=== PATIENT | male | born 1930 | race Caucasian/White ===

== ENCOUNTER 2017-09-03 14:11 | Inpatient (IN) | payer OTHER ==
[~2017-09-03] VITALS: Ht 180.3 cm; Wt 88.5 kg
[2017-09-03 14:36] LABS: BASOPHIL (%) 0.7 % (0-1); EOSINOPHIL (%) 0.3 % (0-5); HEMATOCRIT 47.4 % (38.0-50.0); HEMOGLOBIN 16.2 G/DL (12.5-16.6); IMMATURE GRANULOCYTE (%) 0.3 % (0.0-0.7); LYMPHOCYTE (%) 20.5 % (15-42); LYMPHOCYTE COUNT 1.2 K/uL (1.0-2.8); MCHC 34.2 G/DL (30.0-36.0); MCV 93.5 FL (86-99); MONOCYTE (%) 7.7 % (3-12); MONOCYTE COUNT 0.5 K/uL (0-0.8); NEUTROPHIL (%) 70.5 % (45-76); NEUTROPHIL COUNT 4.1 K/uL (1.8-6.4); PLATELET COUNT 178 K/uL (156-360); RBC DIS.WIDTH-CV 13.6 % (11.8-14.6); RBC DIS.WIDTH-SD 46.5 % (39-53); RED BLOOD COUNT 5.07 M/uL (4.00-5.50); WHITE BLOOD COUNT 5.8 K/uL (4.1-10.2)
[2017-09-03 14:56] LABS: TROP-I INTERPRETATION NEGATIVE; TROPONIN-I < 0.01 ng/mL (0.0-0.30)
[2017-09-03 14:59] LABS: INTER. NORMALIZED RATIO 1.1
[2017-09-03 15:02] LABS: AMYLASE 24 IU/L (1-118); CHLORIDE 107 mEq/L (99-109); POTASSIUM 3.8 mEq/L (3.7-5.4); PTT 40.4 SEC (25-37); SODIUM 139 mEq/L (136-147)
[2017-09-03 15:04] LABS: GLUCOSE 107 mg/dL (70-99)
[2017-09-03 15:07] LABS: SERUM ETHYL ALCOHOL < 10 mg/dL
[2017-09-03 15:08] LABS: CREATININE 0.7 mg/dL (0.6-1.3); GFR ESTIMATE (CALCULATED) > 59 mL/min/ (58.99-99999)
[2017-09-03 15:09] LABS: UREA NITROGEN (BUN) 10 mg/dL (9-23)
[2017-09-03 15:11] LABS: LIPASE 15 U/L (1.0-51.0)
[2017-09-03 19:29] LABS: HDL CHOLESTEROL 50 MG/DL (Desirable>=40); LDL CHOLESTEROL 116 mg/dL (Desirable<100); NON-HDL CHOLESTEROL 140 mg/dL (Desirable<160); TOTAL CHOLESTEROL 190 mg/dL (Desirable<200); TRIGLYCERIDES 118 MG/DL (Normal: <150)
[2017-09-03 19:47] LABS: APPEARANCE CLEAR ((CLEAR)); BILIRUBIN NEGATIVE; BLOOD NEGATIVE; COLOR YELLOW ((YELLOW)); GLUCOSE (STRIP) NEGATIVE; KETONES 20; LEUKOCYTES NEGATIVE; NITRITE NEGATIVE; PROTEIN (STRIP) NEGATIVE; UCUL ADDED? NO; UROBILINOGEN 0.2 MG/DL (0.2-1.0)
[2017-09-03 19:59] LABS: AMPHETAMINE NEGATIVE (500 ng/mL); BARBITURATES NEGATIVE (200 ng/mL); BENZODIAZEPINES NEGATIVE (150 ng/mL); BUPRENORPHINE NEGATIVE (10 ng/mL); COCAINE NEGATIVE (150 ng/mL); METHADONE NEGATIVE (200 ng/mL); METHAMPHETAMINE NEGATIVE (500 ng/mL); OPIATES (MORPHINE) NEGATIVE (100 ng/mL); OXYCODONE NEGATIVE (100 ng/mL); PHENCYCLIDINE NEGATIVE (25 ng/mL); PROPOXYPHENE NEGATIVE (300 ng/mL); THC CANNABINOIDS NEGATIVE (50 ng/mL); TRICYCLIC ANTIDEPRESSANTS NEGATIVE (300 ng/mL)
[2017-09-03 21:35] LABS: TROP-I INTERPRETATION NEGATIVE; TROPONIN-I 0.02 ng/mL (0.0-0.30)
[2017-09-04 03:18] VITALS: BP 160/96
[2017-09-04 04:20] LABS: HEMATOCRIT 43.2 % (38.0-50.0); HEMOGLOBIN 14.8 G/DL (12.5-16.6); MCH 31.8 PG (29.0-34.0); MCHC 34.3 G/DL (30.0-36.0); MCV 92.7 FL (86-99); PLATELET COUNT 163 K/uL (156-360); RBC DIS.WIDTH-CV 13.5 % (11.8-14.6); RBC DIS.WIDTH-SD 45.3 % (39-53); RED BLOOD COUNT 4.66 M/uL (4.00-5.50); WHITE BLOOD COUNT 6.5 K/uL (4.1-10.2)
[2017-09-04 04:29] LABS: ALBUMIN 3.6 g/dL (3.2-4.8); CHLORIDE 104 mEq/L (99-109); POTASSIUM 3.9 mEq/L (3.7-5.4); SODIUM 139 mEq/L (136-147)
[2017-09-04 04:31] LABS: GLUCOSE 94 mg/dL (70-99); TOTAL PROTEIN 6.4 g/dL (6.4-8.3)
[2017-09-04 04:33] LABS: TOTAL BILIRUBIN 1.5 mg/dL (0.0-1.0)
[2017-09-04 04:35] LABS: ALKALINE PHOSPHATASE 90 IU/L (3-129); CREATININE 0.7 mg/dL (0.6-1.3); GFR ESTIMATE (CALCULATED) > 59 mL/min/ (58.99-99999)
[2017-09-04 04:36] LABS: UREA NITROGEN (BUN) 10 mg/dL (9-23)
[2017-09-04 04:37] LABS: AST (GOT) 30 IU/L (2-34)
[2017-09-04 04:38] LABS: ALT (GPT) 23 IU/L (3-49)
[2017-09-04 04:41] LABS: TROP-I INTERPRETATION NEGATIVE; TROPONIN-I 0.02 ng/mL (0.0-0.30)
[2017-09-04 06:05] VITALS: BP 156/96
[2017-09-04 07:44] VITALS: BP 156/81
[2017-09-04 10:25] LABS: HEMOGLOBIN A1c (GLYCOHEMOGLOB) 5.5 % (Below 5.7)
[2017-09-04 12:03] VITALS: BP 163/79
[2017-09-04 15:17] VITALS: BP 120/71
[2017-09-04 19:35] VITALS: BP 147/73
[2017-09-05] VITALS (7 sets, daily range): BP systolic 127–183; BP diastolic 65–86
[2017-09-05 06:10] LABS: BASOPHIL (%) 0.7 % (0-1); EOSINOPHIL (%) 1.7 % (0-5); EOSINOPHIL COUNT 0.1 K/uL (0-0.3); HEMATOCRIT 41.9 % (38.0-50.0); HEMOGLOBIN 13.8 G/DL (12.5-16.6); IMMATURE GRANULOCYTE (%) 0.2 % (0.0-0.7); LYMPHOCYTE (%) 33.3 % (15-42); MCH 30.8 PG (29.0-34.0); MCHC 32.9 G/DL (30.0-36.0); MCV 93.5 FL (86-99); MONOCYTE (%) 11.2 % (3-12); MONOCYTE COUNT 0.7 K/uL (0-0.8); NEUTROPHIL (%) 52.9 % (45-76); NEUTROPHIL COUNT 3.2 K/uL (1.8-6.4); PLATELET COUNT 160 K/uL (156-360); RBC DIS.WIDTH-CV 13.3 % (11.8-14.6); RBC DIS.WIDTH-SD 45.9 % (39-53); RED BLOOD COUNT 4.48 M/uL (4.00-5.50)
[2017-09-05 06:43] LABS: ALBUMIN 3.3 G/DL (3.2-4.8); ALKALINE PHOSPHATASE 76 IU/L (3-129); ALT (GPT) 16 IU/L (3-49); AST (GOT) 38 IU/L (2-34); CHLORIDE 100 MEQ/L (99-109); CREATININE 0.8 MG/DL (0.6-1.3); GFR ESTIMATE (CALCULATED) > 59 mL/min/ (58.99-99999); GLUCOSE 77 mg/dL (70-99); POTASSIUM 3.7 MEQ/L (3.7-5.4); SODIUM 137 MEQ/L (136-147); TOTAL BILIRUBIN 1.6 MG/DL (0.0-1.0); TOTAL PROTEIN 5.9 G/DL (6.4-8.3); UREA NITROGEN (BUN) 15 mg/dL (9-23)
[2017-09-06 01:00] VITALS: BP 137/74
[2017-09-06 03:34] VITALS: BP 142/78
[2017-09-06 06:45] LABS: BASOPHIL (%) 0.8 % (0-1); BASOPHIL COUNT 0.1 K/uL (0-0.1); EOSINOPHIL (%) 2.7 % (0-5); EOSINOPHIL COUNT 0.2 K/uL (0-0.3); HEMATOCRIT 42.7 % (38.0-50.0); HEMOGLOBIN 14.6 G/DL (12.5-16.6); IMMATURE GRANULOCYTE (%) 0.2 % (0.0-0.7); LYMPHOCYTE COUNT 1.8 K/uL (1.0-2.8); MCH 32.2 PG (29.0-34.0); MCHC 34.2 G/DL (30.0-36.0); MCV 94.1 FL (86-99); MONOCYTE (%) 11.8 % (3-12); MONOCYTE COUNT 0.7 K/uL (0-0.8); NEUTROPHIL (%) 55.5 % (45-76); NEUTROPHIL COUNT 3.5 K/uL (1.8-6.4); PLATELET COUNT 155 K/uL (156-360); RBC DIS.WIDTH-CV 13.3 % (11.8-14.6); RBC DIS.WIDTH-SD 46.3 % (39-53); RED BLOOD COUNT 4.54 M/uL (4.00-5.50); WHITE BLOOD COUNT 6.2 K/uL (4.1-10.2)
[2017-09-06 07:20] LABS: CHLORIDE 101 MEQ/L (99-109); CREATININE 0.7 MG/DL (0.6-1.3); GFR ESTIMATE (CALCULATED) > 59 mL/min/ (58.99-99999); GLUCOSE 74 mg/dL (70-99); POTASSIUM 3.8 MEQ/L (3.7-5.4); SODIUM 138 MEQ/L (136-147); UREA NITROGEN (BUN) 18 mg/dL (9-23)
[2017-09-06 07:24] VITALS: BP 150/71
[2017-09-06 10:57] VITALS: BP 143/68
[2017-09-06] MEDS ORDERED: ELIQUIS5 MG PO (12:39)
[2017-09-06] MEDS ORDERED: PRAVASTATIN SOD40 MG PO (12:39)
[2017-09-06] MEDS ORDERED: DILTIAZEM 24HR120 MG PO (12:39)
[2017-09-06] MEDS ORDERED: LOPRESSOR25 MG PO (12:39)
[2017-09-06] MEDS ORDERED: ASPIR-LOW81 MG PO (12:40)
[2017-09-06] MEDS ORDERED: DOCUSATE SODIU100 MG PO (12:40)
[2017-09-06 15:09] VITALS: BP 116/72
== END 2017-09-06 15:09 | DRG 65 ==
LOC: EME 14:11 → EDOF 18:09 → 4EAST 18:09 → ENRESERVTM 18:09 → ENRESERV 18:11 → 4EAST 09-04 02:35 → ENRESERV 09-05 08:10 → 5SOUTH 09-05 10:54
PROVIDERS: Emergency Medicine; Hospitalist
DX: I63.131 Cerebral infarction due to embolism of right carotid artery (principal); I67.82 Cerebral ischemia; G81.94 Hemiplegia, unspecified affecting left nondominant side; F33.9 Major depressive disorder, recurrent, unspecified; I11.0 Hypertensive heart disease with heart failure; I50.9 Heart failure, unspecified; E78.5 Hyperlipidemia, unspecified; G89.29 Other chronic pain; I35.0 Nonrheumatic aortic (valve) stenosis; R29.810 Facial weakness; M19.90 Unspecified osteoarthritis, unspecified site; M10.9 Gout, unspecified; E66.9 Obesity, unspecified; I44.0 Atrioventricular block, first degree; I48.91 Unspecified atrial fibrillation; R32 Unspecified urinary incontinence; Z68.27 Body mass index [BMI] 27.0-27.9, adult; Z85.828 Personal history of other malignant neoplasm of skin; Z86.73 Personal history of transient ischemic attack (TIA), and cerebral infarction without residual deficits; Z79.82 Long term (current) use of aspirin; Z79.01 Long term (current) use of anticoagulants; Z60.2 Problems related to living alone; Z80.0 Family history of malignant neoplasm of digestive organs; Z82.49 Family history of ischemic heart disease and other diseases of the circulatory system
CPT/HCPCS: 70450; 70496; 70498; 70551; 71045; 80047; 80048; 80053; 80061; 81003; 82150; 82948; 83036; 83605; 83690; 84484; 84999; 85025; 85027; 85610; 85730; 86850; 86900; 86901; 92523 GN; 92610 GN; 93005; 93306; 97530 GO; 99281; 99285; G0480; J1644; J7030; J7050

== ENCOUNTER 2017-09-06 13:01 | Inpatient (IN) | payer OTHER ==
[~2017-09-06] VITALS: Ht 182.9 cm; Wt 87.3 kg
[~2017-09-06 13:01] MED LIST: ASPIR-LOW81 MG PO; DILTIAZEM 24HR120 MG PO; DOCUSATE SODIU100 MG PO; ELIQUIS5 MG PO; LOPRESSOR25 MG PO; PRAVASTATIN SOD40 MG PO
[2017-09-06 15:15] VITALS: BP 138/65
[2017-09-06 23:53] VITALS: BP 127/59
[2017-09-07 05:28] VITALS: BP 104/57
[2017-09-07 05:54] LABS: HEMATOCRIT 43.7 % (38.0-50.0); HEMOGLOBIN 14.8 G/DL (12.5-16.6); MCH 31.6 PG (29.0-34.0); MCHC 33.9 G/DL (30.0-36.0); MCV 93.4 FL (86-99); PLATELET COUNT 156 K/uL (156-360); RBC DIS.WIDTH-CV 13.2 % (11.8-14.6); RBC DIS.WIDTH-SD 45.5 % (39-53); RED BLOOD COUNT 4.68 M/uL (4.00-5.50); WHITE BLOOD COUNT 6.9 K/uL (4.1-10.2)
[2017-09-07 07:46] LABS: ALBUMIN 3.3 G/DL (3.2-4.8); ALKALINE PHOSPHATASE 82 IU/L (3-129); ALT (GPT) 18 IU/L (3-49); AST (GOT) 39 IU/L (2-34); CHLORIDE 102 MEQ/L (99-109); CREATININE 0.8 MG/DL (0.6-1.3); GFR ESTIMATE (CALCULATED) > 59 mL/min/ (58.99-99999); GLUCOSE 89 mg/dL (70-99); POTASSIUM 3.7 MEQ/L (3.7-5.4); SODIUM 138 MEQ/L (136-147); TOTAL BILIRUBIN 1.6 MG/DL (0.0-1.0); TOTAL PROTEIN 6.1 G/DL (6.4-8.3); UREA NITROGEN (BUN) 19 mg/dL (9-23)
[2017-09-07 16:49] VITALS: BP 97/56
[2017-09-08 05:55] VITALS: BP 110/63
[2017-09-08 15:20] VITALS: BP 111/59
[2017-09-09 05:00] VITALS: BP 134/60
[2017-09-09] MEDS ORDERED: HYDROCODON-ACE1 EAC7 PO (11:14)
== END 2017-09-09 06:40 | DRG 57 ==
LOC: 3WEST 13:01
PROVIDERS: Physical Medicine & Rehabilitation Pain Medicine
PROC: F07M0ZZ Range of Motion and Joint Mobility Treatment of Musculoskeletal System - Whole Body (ICD-10-PCS; principal; 2017-09-06)
DX: I69.354 Hemiplegia and hemiparesis following cerebral infarction affecting left non-dominant side (principal); I69.322 Dysarthria following cerebral infarction; R26.9 Unspecified abnormalities of gait and mobility; R41.4 Neurologic neglect syndrome; I65.21 Occlusion and stenosis of right carotid artery; D69.6 Thrombocytopenia, unspecified; T82.7XXA Infection and inflammatory reaction due to other cardiac and vascular devices, implants and grafts, initial encounter; L02.413 Cutaneous abscess of right upper limb; S30.810A Abrasion of lower back and pelvis, initial encounter; X58.XXXA Exposure to other specified factors, initial encounter; I10 Essential (primary) hypertension; I48.91 Unspecified atrial fibrillation; R00.1 Bradycardia, unspecified; M10.9 Gout, unspecified; M19.90 Unspecified osteoarthritis, unspecified site; M79.641 Pain in right hand; M25.511 Pain in right shoulder; M25.512 Pain in left shoulder
CPT/HCPCS: 80053; 85027; 92507 GN; 92523 GN; 92610 GN; 97530 GP; J0131; J2405; J2795; J3010

== ENCOUNTER 2017-09-09 07:10 | Inpatient (IN) | payer OTHER ==
[~2017-09-09] VITALS: Ht 182.9 cm; Wt 85.1 kg
[2017-09-09] VITALS (13 sets, daily range): BP systolic 125–187; BP diastolic 69–150
[2017-09-09] MEDS ORDERED: HYDROCODON-ACE1 EAC7 PO (11:14)
[2017-09-10] VITALS (12 sets, daily range): BP systolic 95–163; BP diastolic 52–101
== END 2017-09-10 15:30 | DRG 39 ==
LOC: SDC 07:10 → 2SOUTH 09:30 → 4WEST 09:30 → CANRESERV 09:32 → ENRESERV 09:32 → 4WEST 11:22
PROC: 03CK0Z6 (ICD-10-PCS; principal; 2017-09-09)
DX: I63.231 Cerebral infarction due to unspecified occlusion or stenosis of right carotid arteries (principal); Z86.73 Personal history of transient ischemic attack (TIA), and cerebral infarction without residual deficits
CPT/HCPCS: 87641; 93005; 94799; C1768; J0690

== ENCOUNTER 2017-09-10 13:55 | Inpatient (IN) | payer OTHER ==
[~2017-09-10] VITALS: Ht 182.9 cm; Wt 86.9 kg
[~2017-09-10 13:55] MED LIST changes: +HYDROCODON-ACE1 EAC7 PO
[2017-09-10 16:31] VITALS: BP 105/53
[2017-09-11 06:35] VITALS: BP 146/70
[2017-09-11 06:47] LABS: ALBUMIN 3.1 G/DL (3.2-4.8); ALKALINE PHOSPHATASE 86 IU/L (3-129); ALT (GPT) 13 IU/L (3-49); AST (GOT) 27 IU/L (2-34); CHLORIDE 101 MEQ/L (99-109); CREATININE 0.8 MG/DL (0.6-1.3); GFR ESTIMATE (CALCULATED) > 59 mL/min/ (58.99-99999); GLUCOSE 95 mg/dL (70-99); POTASSIUM 3.9 MEQ/L (3.7-5.4); SODIUM 135 MEQ/L (136-147); TOTAL BILIRUBIN 1.3 MG/DL (0.0-1.0); TOTAL PROTEIN 6.4 G/DL (6.4-8.3); UREA NITROGEN (BUN) 15 mg/dL (9-23)
[2017-09-11 06:52] LABS: HEMATOCRIT 40.7 % (38.0-50.0); HEMOGLOBIN 14.1 G/DL (12.5-16.6); MCH 32.6 PG (29.0-34.0); MCHC 34.6 G/DL (30.0-36.0); PLATELET COUNT 170 K/uL (156-360); RBC DIS.WIDTH-CV 13.2 % (11.8-14.6); RED BLOOD COUNT 4.33 M/uL (4.00-5.50); WHITE BLOOD COUNT 7.5 K/uL (4.1-10.2)
[2017-09-11 15:00] VITALS: BP 118/68
[2017-09-12 05:58] VITALS: BP 123/63
[2017-09-12 15:33] VITALS: BP 109/60
[2017-09-12 21:29] VITALS: BP 138/68
[2017-09-13 05:27] VITALS: BP 112/58
[2017-09-13 15:07] VITALS: BP 106/58
[2017-09-14 05:44] VITALS: BP 121/66
[2017-09-14 15:32] VITALS: BP 104/57
[2017-09-15 05:22] VITALS: BP 126/61
[2017-09-15 15:42] VITALS: BP 133/61
[2017-09-16 05:29] VITALS: BP 137/69
[2017-09-16 06:36] LABS: FOLIC ACID (FOLATE) 9.2 NG/ML (5.0-22.0)
[2017-09-16 15:48] VITALS: BP 138/82
[2017-09-16] MEDS ORDERED: PEPCID20 MG PO (16:10)
[2017-09-17 05:36] VITALS: BP 135/71
[2017-09-17 15:23] VITALS: BP 124/84
[2017-09-18 05:41] VITALS: BP 105/53
[2017-09-18 15:35] VITALS: BP 153/70
[2017-09-19 06:38] VITALS: BP 144/69
[2017-09-19 15:57] VITALS: BP 127/72
[2017-09-19 20:35] VITALS: BP 105/61
[2017-09-20 07:02] VITALS: BP 98/52
[2017-09-20 09:30] VITALS: BP 119/55
[2017-09-20 15:47] VITALS: BP 125/58
[2017-09-21 07:10] VITALS: BP 120/61
[2017-09-21 16:04] VITALS: BP 104/65
[2017-09-22 15:30] VITALS: BP 112/66
[2017-09-23 05:52] LABS: HEMATOCRIT 38.4 % (38.0-50.0); HEMOGLOBIN 12.8 G/DL (12.5-16.6); MCH 31.6 PG (29.0-34.0); MCHC 33.3 G/DL (30.0-36.0); MCV 94.8 FL (86-99); PLATELET COUNT 160 K/uL (156-360); RBC DIS.WIDTH-CV 13.3 % (11.8-14.6); RBC DIS.WIDTH-SD 46.5 % (39-53); RED BLOOD COUNT 4.05 M/uL (4.00-5.50); WHITE BLOOD COUNT 4.9 K/uL (4.1-10.2)
[2017-09-23 06:16] VITALS: BP 98/52
[2017-09-23 06:24] LABS: ALBUMIN 3.1 G/DL (3.2-4.8); ALKALINE PHOSPHATASE 74 IU/L (3-129); ALT (GPT) 18 IU/L (3-49); AST (GOT) 28 IU/L (2-34); CHLORIDE 101 MEQ/L (99-109); GFR ESTIMATE (CALCULATED) > 59 mL/min/ (58.99-99999); GLUCOSE 88 mg/dL (70-99); POTASSIUM 4.1 MEQ/L (3.7-5.4); SODIUM 135 MEQ/L (136-147); TOTAL BILIRUBIN 0.8 MG/DL (0.0-1.0); TOTAL PROTEIN 5.9 G/DL (6.4-8.3); UREA NITROGEN (BUN) 18 mg/dL (9-23)
[2017-09-23 15:42] VITALS: BP 112/72
[2017-09-23] MEDS ORDERED: TYLENOL REGULA325 MG PO (18:13)
[2017-09-23] MEDS ORDERED: SENNA PLUS TAB1 EACH PO (18:14)
[2017-09-23] MEDS ORDERED: DOCUSATE SODIU100 MG PO (18:14)
[2017-09-23] MEDS ORDERED: VITAMIN D-32000 UNI2 PO (18:14)
[2017-09-24 05:10] VITALS: BP 118/60
== END 2017-09-24 13:28 | DRG 57 ==
LOC: 3WEST 13:55 → ENPENDDIS 09-24 → 3WEST 09-24 13:28
PROVIDERS: Physical Medicine & Rehabilitation Pain Medicine; Psychiatry & Neurology Neurology
PROC: F07M0ZZ Range of Motion and Joint Mobility Treatment of Musculoskeletal System - Whole Body (ICD-10-PCS; principal; 2017-09-10)
DX: I69.354 Hemiplegia and hemiparesis following cerebral infarction affecting left non-dominant side (principal); I69.392 Facial weakness following cerebral infarction; Z74.09 Other reduced mobility; K59.00 Constipation, unspecified; Z48.00 Encounter for change or removal of nonsurgical wound dressing; S31.000A Unspecified open wound of lower back and pelvis without penetration into retroperitoneum, initial encounter; I10 Essential (primary) hypertension; I48.91 Unspecified atrial fibrillation; D69.6 Thrombocytopenia, unspecified; R00.1 Bradycardia, unspecified; M79.641 Pain in right hand; R47.1 Dysarthria and anarthria; M10.9 Gout, unspecified; M25.512 Pain in left shoulder; M25.511 Pain in right shoulder; E87.1 Hypo-osmolality and hyponatremia; E77.8 Other disorders of glycoprotein metabolism; I25.10 Atherosclerotic heart disease of native coronary artery without angina pectoris
CPT/HCPCS: 80053; 82306; 82607; 82746; 84443; 85027; 92507 GN; 92523 GN; 94760; 94799; 97110 GO; 97127 GN; 97530 GP